=== PATIENT | female | born 1990 | race Caucasian/White ===

== ENCOUNTER 2017-08-11 19:13 | Emergency (ER) | payer OTHER ==
[2017-08-11 19:47] VITALS: RESP 18
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
[2017-08-11] MEDS ORDERED: HYDROcodone/APAP 5-325MG 1 EACH TAB PO STA (20:51)
[2017-08-11] MEDS ORDERED: ONDANSETRON ODT 4 MG TAB PO STA (20:51)
[2017-08-11] MEDS ORDERED: LORazepam 1 MG TAB PO STA (20:51)
[2017-08-11] MEDS ORDERED: NICOTINE 21MG/24HR PATCH TRANSDERM STA (20:53)
[2017-08-11] MEDS ORDERED: HALOPERIDOL LACTATE 5 MG/ML 1 ML VIAL IM STA (21:30)
[2017-08-11 22:17] VITALS: BP 134/83; PULSE 98; TEMP 97.1
== END 2017-08-11 22:16 | disposition home or self-care (01) ==
LOC: EC 19:13
DX: F31.9 Bipolar disorder, unspecified (principal); M79.7 Fibromyalgia; F17.200 Nicotine dependence, unspecified, uncomplicated; Z79.899 Other long term (current) drug therapy; Z88.5 Allergy status to narcotic agent; Z88.6 Allergy status to analgesic agent
CPT/HCPCS: 82075; 99284; 96372; S4990; J1630